=== PATIENT | male | born 1990 | race Caucasian/White ===

== ENCOUNTER 2024-05-10 14:57 | Emergency (ER) | payer MEDICAID ==
[~2024-05-10] VITALS: Ht 177.8 cm; Wt 84.1 kg
[2024-05-10 15:18] VITALS: O2SAT 100
[2024-05-10 18:10] LABS: BASOPHILS % 0.4 % (0.0-2.0); EOSINOPHILS % 1.2 % (0.0-5.0); HEMATOCRIT. 47.2 % (42.0-52.0); HEMOGLOBIN. 15.6 g/dL (14.0-18.0); LYMPHOCYTES % 28.3 % (20.0-50.0); MEAN CORPUSCULAR HGB CONC 33.1 g/dL (31.0-37.0); MEAN CORPUSCULAR VOLUME 87.5 fL (80.0-94.0); MEAN PLATELET VOLUME 8.1 fl (7.4-10.4); NEUTROPHILS % 62.1 % (40.0-76.0); PLATELET 290 x1000/uL (130-400); RED CELL DISTRIBUTION WIDTH 13.4 % (11.6-14.6); WHITE BLOOD COUNT 7.3 x1000/uL (4.5-11.0)
[2024-05-10 18:45] LABS: CARBON DIOXIDE 27 mEq/L (21-32); CHLORIDE 104 mEq/L (98-107); SODIUM 139 mEq/L (136-145)
[2024-05-10 18:46] LABS: CALCIUM 9.7 mg/dL (8.7-10.4)
[2024-05-10 18:51] LABS: GLUCOSE 88 mg/dL (70-105); UREA NITROGEN BLOOD 8 mg/dL (9-23)
[2024-05-10 18:53] LABS: ACETAMINOPHEN < 2 ug/mL (10-30)
[2024-05-10 18:55] LABS: THYROID STIMULATING HORMONE 1.41 uIU/mL (0.55-4.78)
[2024-05-10 18:56] LABS: ETHANOL BLOOD < 10 mg/dL (<10); TROPONIN I HIGH SENSITIVITY < 4 ng/L (3.0-53)
[2024-05-10 23:15] LABS: *AMPHETAMINES SCREEN URINE NEGATIVE (NEGATIVE); *BARBITURATES SCREEN URINE NEGATIVE (NEGATIVE); *BENZODIAZEPINES SCREEN URINE NEGATIVE (NEGATIVE); *COCAINE SCREEN URINE NEGATIVE (NEGATIVE); METHADONE URINE SCREEN NEGATIVE (NEGATIVE); OPIATES URINE SCREEN NEGATIVE (NEGATIVE); PHENCYCLIDINE URINE SCREEN NEGATIVE (NEGATIVE)
[2024-05-10 23:16] LABS: CANNABINOID URINE SCREEN PRESUMPTIVE POSITIVE (NEGATIVE); ECSTASY MDMA SCREEN URINE NEGATIVE (NEGATIVE)
[2024-05-11 12:06] VITALS: BP 121/71; PULSE 57; RESP 10; TEMP 36.8; O2SAT 99
== END 2024-05-11 12:43 | disposition home or self-care (01) ==
LOC: ER 14:57
DX: R45.851 Suicidal ideations (principal); R07.89 Other chest pain; F12.90 Cannabis use, unspecified, uncomplicated; Z59.00 Homelessness unspecified; F31.9 Bipolar disorder, unspecified; F20.9 Schizophrenia, unspecified; Z98.890 Other specified postprocedural states; Z79.899 Other long term (current) drug therapy; Z88.0 Allergy status to penicillin
CPT/HCPCS: 36415; 71045; 80048; 80305; 80307; 80320; 80329; 84443; 84484; 85025; 93005; 99285; G0480

== ENCOUNTER 2024-05-17 19:37 | Emergency (ER) | payer MEDICAID ==
[~2024-05-17] VITALS: Ht 177.8 cm; Wt 82.0 kg
[2024-05-17 19:55] VITALS: BP 118/85; PULSE 63; RESP 18; TEMP 37.3; O2SAT 97
[2024-05-17] MEDS ORDERED: PRED5TAB48 MT (23:24)
[2024-05-17] MEDS: DEXAMETHASONE 10 MG/ML VIAL PO ONE (23:36)
== END 2024-05-17 23:42 | disposition home or self-care (01) ==
LOC: ER 19:37
DX: R06.02 Shortness of breath (principal); F41.9 Anxiety disorder, unspecified; F20.9 Schizophrenia, unspecified; F31.9 Bipolar disorder, unspecified; Z79.52 Long term (current) use of systemic steroids; Z98.890 Other specified postprocedural states; Z79.899 Other long term (current) drug therapy; Z88.0 Allergy status to penicillin
CPT/HCPCS: 99283; J1100